=== PATIENT | female | born 1975 | race Caucasian/White ===

== ENCOUNTER → 2017-01-11 | Outpatient (CLI) | payer OTHER ==
[2017-01-11 13:00] LABS: ESTIMATED AVERAGE GLUCOSE 94 mg/dl; HA1C FLAG Normal (Normal)
[2017-01-11 13:09] LABS: CALCIUM 9.4 mg/dl (8.5-10.1)
[2017-01-11 13:12] LABS: ALT/SGPT 76 U/L (12-78); AST/SGOT 29 U/L (15-37); BLOOD UREA NITROGEN 11 mg/dl (7-18); BUN/CREATININE RATIO 14.9 (10-20); CARBON DIOXIDE 24 mmol/L (21-32); CHLORIDE 108 mmol/L (98-107); CHOLESTEROL 237 mg/dl (0-200); CREATININE 0.76 mg/dl (0.60-1.20); GLUCOSE 112 mg/dl (70-99); POTASSIUM 4.1 mmol/L (3.5-5.1); SODIUM 140 mmol/L (136-145); TRIGLYCERIDES 158 mg/dl (0-150); VERY LOW DENSITY LIPOPROT CALC 32 mg/dl
[2017-01-11 13:16] LABS: ALB/GLOB RATIO 1.4 (0.9-2); ALKALINE PHOSPHATASE 106 U/L (45-117); CHOLESTEROL/HDL RATIO 6.1; HDL CHOLESTEROL 39 mg/dl; LDL CHOLESTEROL CALCULATED 166 mg/dl
== END | disposition home or self-care (01) ==
LOC: C.LABPBG 10:33
PROVIDERS: ATTEND Physician Assistant
DX: E78.5 Hyperlipidemia, unspecified (principal); K76.0 Fatty (change of) liver, not elsewhere classified; Z13.1 Encounter for screening for diabetes mellitus

== ENCOUNTER → 2017-01-12 | Outpatient (CLI) | payer OTHER | END | disposition home or self-care (01) | LOC: C.LABPBG 12:40 | PROVIDERS: ATTEND Physician Assistant | DX: Z13.21 Encounter for screening for nutritional disorder (principal) ==

== ENCOUNTER → 2017-02-12 | Outpatient (CLI) | payer OTHER ==
--- NOTE | 2017-02-12 14:24 | MAMMOGRAPHY REPORT ---
BILATERAL DIGITAL SCREENING MAMMOGRAM TOMOSYNTHESIS WITH CAD: 02/12/2017 CLINICAL HISTORY: Routine screening. Patient has no complaints. TECHNIQUE: Breast tomosynthesis in addition to standard 2D mammography was performed. Current study was also evaluated with a Computer Aided Detection (CAD) system. COMPARISON: Comparison is made to exams dated: 12/28/2014 mammogram, 07/26/2012 mammogram, 03/03/2011 mammogram, and 05/24/2008 mammogram. BREAST COMPOSITION: The tissue of both breasts is almost entirely fatty. FINDINGS: No suspicious masses, calcifications, or areas of architectural distortion are noted in ei ther breast. There has been no significant interval change compared to prior exams. IMPRESSION: ACR BI-RADS CATEGORY 1: NEGATIVE There is no mammographic evidence of malignancy. A 1 year screening mammogram is recommended. The pa tient will receive written notification of the results. Approximately 10% of breast cancers are not detected with mammography. A negative mammographic report should not delay biopsy if a clinically suggestive mass is present. Roxanne Ayon M.D. ah/:02/12/2017 13:37:48 [employer] [employer] Director: Nidia HERNANDEZ(R)(M), [facility] letter sent: Normal 1/2 BI-RADS Code: ACR BI-RADS Category 1: Negative
== END | disposition home or self-care (01) ==
LOC: C.MAMM 13:01
PROVIDERS: ATTEND Physician Assistant
DX: Z12.31 Encounter for screening mammogram for malignant neoplasm of breast (principal)

== ENCOUNTER → 2017-05-25 | Outpatient (CLI) | payer OTHER ==
[2017-05-25 12:50] LABS: CHOLESTEROL/HDL RATIO 4.7
== END | disposition home or self-care (01) ==
LOC: C.LABPBG 09:22
PROVIDERS: ATTEND Physician Assistant
DX: E55.9 Vitamin D deficiency, unspecified (principal); E78.5 Hyperlipidemia, unspecified

== ENCOUNTER → 2018-01-07 | Outpatient (CLI) | payer OTHER | END | disposition home or self-care (01) | LOC: C.LABPBG 10:05 | PROVIDERS: ATTEND Physician Assistant | DX: E55.9 Vitamin D deficiency, unspecified (principal) ==

== ENCOUNTER 2024-02-24 06:56 | Observation (INO) ==
--- NOTE | 2024-02-21 15:17 | Anesthesiology Consultation ---
Date of Service February 21, 2024 Assessment & Plan (1) Encounter for pre-operative examination: Chart Review Chart Review: Acceptable Risk for Surgery and Patient NOT seen in Pre Admission Testing Infectious Disease screening: Per PAT nursing assessment on 02/16/24, No known infectious disease contacts in past 10 days or current infectious disease symptoms. No recent travel outside the country. History Surgery Operation Date: 02/24/24 08:20 Proposed Procedures p Open Recurrent Incisional Hernia Repair, Possible Mesh - Leonardo Lala MD, FACS Height/Weight Height: 6 ft Weight: 86.183 kg Allergies Allergy/AdvReac Type Severity Reaction Status Date / Time amlodipine [From [facility]] AdvReac Mild lower Verified 02/16/24 07:59 extremity swelling lisinopril AdvReac Mild Cough Verified 02/16/24 07:59 Medications Home Medications Medication Instructions Recorded Confirmed Last Taken fluticasone propionate 50 2 spray intranasal DAILY PRN 07/09/20 02/16/24 Unknown mcg/actuation nasal Allergy Symptoms #18.2 mL spray,suspension multivitamin 1 tab PO QAM 04/18/21 02/16/24 04/23/21 10:00 furosemide 20 mg tablet (Lasix) 20 mg PO DAILY PRN edema #20 tabs 02/22/23 02/16/24 Unknown lorazepam 0.5 mg tablet 0.5 mg PO BID PRN Anxiety #30 tabs 06/23/23 02/16/24 Unknown oxycodone 5 mg tablet 5 mg PO Q6 PRN pain #12 tabs 08/07/23 02/16/24 Unknown omeprazole 40 mg capsule,delayed 40 mg PO DAILY #90 caps 11/17/23 02/16/24 Unknown release famotidine 40 mg tablet (Pepcid) 40 mg PO BID PRN acid reflux #90 12/01/23 02/16/24 Unknown tabs metronidazole 500 mg tablet 500 mg PO .COMPLEX #3 tabs 01/19/24 01/19/24 Unknown neomycin 500 mg tablet 1 g (2 x 500 mg) PO .COMPLEX #6 01/19/24 01/19/24 Unknown tabs gabapentin 300 mg capsule 600 mg (2 x 300 mg) PO BID #100 02/09/24 02/16/24 Unknown caps trazodone 50 mg tablet 100 mg (2 x 50 mg) PO HS #180 tabs 02/14/24 02/16/24 Unknown Past Medical History Medical History (Updated 02/21/24 @ 15:18 by Kendal Barraza PA-C) Acid reflux Allergic rhinitis hx Anxiety and depression Chronic anemia Chronic venous insufficiency DDD (degenerative disc disease), lumbar Fatty liver CHAVES History of blood clots 2002-S/P HYSTERECTOMY PE-WAS TREATED WITH BLOOD THIINERS FOR A TIME-NO LONGER History of COVID-19 (2019) no hosp, resolved History of malignant neoplasm unaware History of renal calculi HX HTN (hypertension) hx of; PCP monitoring but no tx since wt loss Hyperlipemia hx of; PCP monitoring but no tx since wt loss Idiopathic polyneuropathy Migraines Sleep apnea no longer uses device since losing weight from gastric bypass sx Past Family History Family History Father , age 38 History of cardiac disorder Hypertension Coronary heart disease Myocardial infarction Brother , age 52 History of cardiac disorder Hypertension Kidney disease Sister , age 50, Sep 2023 Hypertension Diabetes Myocardial infarction Aunt Breast cancer 2 AUNTS IN THEIR 70'S Ovarian cancer 70'S Uncle Prostate cancer, Onset Age: 60 Grandfather (Paternal) Colorectal cancer Coronary heart disease Parkinson disease Grandmother (Maternal) Diabetes Parkinson disease Mother Hypertension Dementia Denies family history of Colon cancer Lung cancer Past Surgical History Surgical History (Updated 02/21/24 @ 15:32 by Kendal Barraza PA-C) Encounter for biopsy Laparoscopic Cholecystectomy with Cholangiogram, Wedge Biopsy of Right Lower Liver Lobe Dr. Lala 04/24/2021 H/O dilation and curettage 1993 History of hernia repair HERNIA AND TUMOR REMOVAL; 2002 AND 2006 History of hysterectomy 2001 History of tubal ligation 1997 Hx laparoscopic cholecystectomy (04/24/21) Laparoscopic Cholecystectomy with Cholangiogram, Wedge Biopsy of Right Lower Liver Lobe Dr. Lala 04/24/2021: GA: MAC#3,, ETT#7.0, DL x 1, atra umatic, Gr View 1 Hx of colonoscopy S/P repair of ventral hernia (07/14/19) Status post gastric bypass for obesity (2019) Social History Smoking Status: Current every day smoker tobacco type: e-cigarettes Smoking cigarettes per day: VAPES 12-15 X A DAY- advised Do You Dip or Chew Tobacco: No Hx Alcohol Use: Yes alcohol intake frequency: holidays/special occasions only Hx Substance Use: No substance use type: does not use Lab Results Anesthesia Preop Results Results Anesthesia Widget: WBC 5.07 K/ul (4.8-10.8) 01/13/24 Hgb 12.3 g/dl (12.0-16.0) 01/13/24 Hct 35.6 % (37.0-47.0) L 01/13/24 Plt 172 K/uL (130-400) 01/13/24 Na 139 mmol/L (136-145) 01/13/24 K 4.0 mmol/L (3.5-5.1) 01/13/24 Cl 104 mmol/L (98-107) 01/13/24 CO2 29 mmol/L (21-32) 01/13/24 BUN 15 mg/dl (6-23) 01/13/24 Creat 0.77 mg/dl (0.6-1.2) 01/13/24 Glucose Level 114 mg/dl (70-99(Fasting)) H 01/13/24 TSH 0.730 uIu/ml (0.300-4.500) 01/13/24 HA1c 4.7 % (4.5-5.6) 01/13/24 Urine Color Yellow 01/13/24 Urine Appearance Clear (Clear) 01/13/24 Urine pH 5.5 (4.5-7.5) 01/13/24 Urine Specific [place] 1.022 (1.000-1.030) 01/13/24 Urine Protein Negative (Negative) 01/13/24 Urine Glucose (UA) Negative (Negative) 01/13/24 Urine Ketones Trace (Negative) H 01/13/24 Urine Blood Negative (Negative) 01/13/24 Urine Nitrite Negative (Negative) 01/13/24 Urine Bilirubin Negative (Negative) 01/13/24 Urine Urobilinogen Negative (Negative) 01/13/24 Urine Leukocyte Esterase Trace (Negative) H 01/13/24 Urine WBC (Auto) 0-5 /hpf (0-5) 01/13/24 Urine RBC (Auto) 0-2 /hpf (0-2) 01/13/24 Urine Hyaline Casts (Auto) 0-2 /lpf (0-2) 01/13/24 Urine Epithelial Cells (Auto) 0-2 /hpf (0-2) 01/13/24 Urine Bacteria (Auto) None Seen (None Seen) 01/13/24 Testing Electrocardiogram Date: 02/17/24 SB with 1st degree AVB. Rate 56bpm. 01/12/2023 EKG: SB, 57bpm. Stress Test Date: 02/23/23 Type: exercise Findings: + WNL Negative exercise stress echo and EKG for ischemia at 94% MPHR. Achieved 10.10METS Resting ECHO: mild cLVH. EF 60-65%. LA borderline dilated. Borderline dilated ascending aorta. No significant valvular disease.
[2024-02-24] MEDS ORDERED: ATROPINE SULFATE 0.1 MG/ML 10ML SYR IV PRN (07:27)
[2024-02-24] MEDS ORDERED: ePHEDrine sulfate 50 MG/ML AMP IV PRN (07:27)
[2024-02-24] MEDS: LR 15ML/HR IV SCH (07:49)
--- NOTE | 2024-02-24 07:54 | History & Physical Report ---
Date of Service February 24, 2024 Assessment & Plan (1) Recurrent incisional hernia with incarceration: Plan: Current situation have been explained to the patient extensively and last visit to the office and I refer to those records for further details including the indications that we recommended an open repair versus a recurrent laparoscopic approach since she had extensive difficulties when it was done in [place] from that approach Risk and complication has similar been explained extensively Will proceed with an open repair possible mesh All question answered History of Present Illness Chief Complaint: Bulge in lower belly Primary Care Provider: Becky Jhaveri, This 48-year-old female we have seen approximately a 35 days ago for recurrent lower abdominal incisional hernia CAT scan and there is finding to be the right of the midline lower incision with possible loop of bowel She is here for hernia repair There is been no changes in overall health in the last 35 days since last seen Allergies Allergy/AdvReac Type Severity Reaction Status Date / Time amlodipine [From [facility]] AdvReac Mild lower Verified 02/24/24 07:22 extremity swelling lisinopril AdvReac Mild Cough Verified 02/24/24 07:22 Home Medications Medication Instructions Recorded Confirmed Type fluticasone propionate 50 2 spray intranasal DAILY PRN 07/09/20 02/24/24 Rx mcg/actuation nasal Allergy Symptoms #18.2 mL spray,suspension multivitamin 1 tab PO QAM 04/18/21 02/24/24 History furosemide 20 mg tablet (Lasix) 20 mg PO DAILY PRN edema #20 tabs 02/22/23 02/24/24 Rx lorazepam 0.5 mg tablet 0.5 mg PO BID PRN Anxiety #30 tabs 06/23/23 02/24/24 Rx oxycodone 5 mg tablet 5 mg PO Q6 PRN pain #12 tabs 08/07/23 02/24/24 Rx omeprazole 40 mg capsule,delayed 40 mg PO DAILY #90 caps 11/17/23 02/24/24 Rx release famotidine 40 mg tablet (Pepcid) 40 mg PO BID PRN acid reflux #90 12/01/23 02/24/24 Rx tabs metronidazole 500 mg tablet 500 mg PO .COMPLEX #3 tabs 01/19/24 02/24/24 Rx neomycin 500 mg tablet 1 g (2 x 500 mg) PO .COMPLEX #6 01/19/24 02/24/24 Rx tabs gabapentin 300 mg capsule 600 mg (2 x 300 mg) PO BID #100 02/09/24 02/24/24 Rx caps trazodone 50 mg tablet 100 mg (2 x 50 mg) PO HS #180 tabs 02/14/24 02/24/24 Rx Past Med/Surg History Problem List Recurrent incisional hernia with incarceration Cold extremities Idiopathic polyneuropathy High hepatic iron concentration determined by biopsy of liver Chronic venous insufficiency Cholecystitis Chronic constipation HX Status post gastric bypass for obesity (07/24/20) 2020 Allergic rhinitis HX Degenerative disc disease, lumbar Sensory polyneuropathy Vitamin D deficiency (Acute) Sleep apnea (Acute) NO LONGER-WT LOSS 100 LBS SINCE GASTRIC BYPASS Obesity Migraine headache (Acute) Hypertension Hyperlipidemia Fatty liver Depression HX Anxiety (Acute) HX Acid reflux (Acute) RESOLVED Medical History Acid reflux Hyperlipemia hx of; PCP monitoring but no tx since wt loss HTN (hypertension) hx of; PCP monitoring but no tx since wt loss Allergic rhinitis hx History of COVID-19 (2019) no hosp, resolved Anxiety and depression Fatty liver CHAVES Sleep apnea no longer uses device since losing weight from gastric bypass sx Chronic anemia DDD (degenerative disc disease), lumbar Chronic venous insufficiency Migraines Idiopathic polyneuropathy History of renal calculi HX History of malignant neoplasm unaware History of blood clots 2002-S/P HYSTERECTOMY PE-WAS TREATED WITH BLOOD THIINERS FOR A TIME-NO LONGER Surgical History Status post gastric bypass for obesity (2019) Encounter for biopsy Laparoscopic Cholecystectomy with Cholangiogram, Wedge Biopsy of Right Lower Liver Lobe Dr. Lala 04/24/2021 Hx laparoscopic cholecystectomy (04/24/21) Laparoscopic Cholecystectomy with Cholangiogram, Wedge Biopsy of Right Lower Liver Lobe Dr. Lala 04/24/2021: GA: MAC#3,, ETT#7.0, DL x 1, atraumatic, Gr View 1 Hx of colonoscopy H/O dilation and curettage 1993 S/P repair of ventral hernia (07/14/19) History of tubal ligation 1997 History of hysterectomy 2001 History of hernia repair HERNIA AND TUMOR REMOVAL; 2002 AND 2006 Family History Father , age 38 History of cardiac disorder Hypertension Coronary heart disease Myocardial infarction Brother , age 52 History of cardiac disorder Hypertension Kidney disease Sister , age 50, Sep 2023 Hypertension Diabetes Myocardial infarction Aunt Breast cancer 2 AUNTS IN THEIR 70'S Ovarian cancer 70'S Uncle Prostate cancer, Onset Age: 60 Grandfather (Paternal) Colorectal cancer Coronary heart disease Parkinson disease Grandmother (Maternal) Diabetes Parkinson disease Mother Hypertension Dementia Denies family history of Colon cancer Lung cancer Social History Smoking Status: Current every day smoker Tobacco Type: E-cigarettes / Vaping Age Started Using Tobacco: 14; Age Quit Using Tobacco: 37; packs per day: 1.5; Cigarettes Per Day: VAPES 12-15 X A DAY- advised; Second Hand Exposure: Yes (FAMILY SMOKES); Do You Dip or Chew Tobacco: No; Tobacco Cessation Education Requested by Patient: No Hx Alcohol Use: Yes Alcohol Intake Frequency: Monthly or Less Hx Substance Use: No Preferred Language: Hebrew Communication Ability: Effective Visual Impairment: No Limitations Hearing Ability: Normal Motor Transport Inspector Required: No Beliefs That Will Affect Care: None marital status: Current Living Situation: Spouse and Family current occupational status: unemployed current occupation: HOUSEWIFE/HOMEMAKER Other Information That Helps Us Care for You: No Feels Safe at Home: Yes Safety Concerns: Feels Safe At This Time Childhood Exposure to Second-Hand Smoke: Yes Diet Comment: hx of a bypass; soft foods caffeine: Yes (Tea x 2 per day.) during the past year weight has: decreased > 10 lbs Dental Care, Regularly: Yes Physical Activity Frequency: Daily Physical Activity Frequency Comment: walking daily Seatbelt Use: always Sunscreen Use: Yes Assistive Devices: Glasses Review of Systems Review of Systems: No change since last seen discomfort in lower belly Physical Exam Physical Exam: Alert coherent no distress Sclera nonicteric No audible rales or rhonchi Heart regular rate Abdomen completely benign lower midline incision to the right distal incision the defect appreciated by physical exam no obvious of any incarcerated tissue at this time Extremity grossly normal Results & Data Results & Data Vital Signs (Past 12 Hours) Vital Signs Temp Pulse Resp BP Pulse Ox O2 Del Method 02/24/24 07:25 36.6 C 58 L 18 126/73 100 Room Air PG Care Time/CCT Total # of Minutes Spent Total Time Spent with Patient: Total time spent is greater than 50% in coordination of care (as documented) at patient's floor/unit and/or counseling patient: Coding Level of Care Code 23721 INT INP/OBS CARE 2/55MIN Diagnoses Recurrent incisional hernia with incarceration K43.0
[2024-02-24] MEDS ORDERED: PROPOFOL IV EMULSION 10 MG/ML 20 ML VIAL IV ONE (07:56)
[2024-02-24] MEDS ORDERED: LIDOCAINE 2% 2 ML VIAL/AMP(20MG/ML) INFIL ONE (07:56)
[2024-02-24] MEDS ORDERED: ONDANSETRON INJ 2 MG/ML 2 ML VIAL ONE (07:56)
[2024-02-24] MEDS ORDERED: MIDAZOLAM HCL 1 MG/ML 2ML VIAL ONE (07:56)
[2024-02-24] MEDS ORDERED: DEXAMETHASONE SOD INJ 4 MG/ML VIAL ONE (07:56)
[2024-02-24] MEDS ORDERED: fentaNYL citrate PF 100 MCG/2 ML VIAL ONE ×2 (07:56→09:18)
[2024-02-24] MEDS ORDERED: ceFAZolin 330 MG/ML 1 GM VIAL ONE (07:59)
[2024-02-24] MEDS ORDERED: ACETAMINOPHEN 1000 MG/100 ML IV IV ONE (08:13)
[2024-02-24] MEDS ORDERED: oxyCODONE/ACETAMINOPHEN 5mg/325mg TAB PO PRN ×2 (08:18)
[2024-02-24] MEDS: ceFAZolin 2000MG 2,000 MG/15 ML SYR IV ONE (08:23)
[2024-02-24] MEDS: LIDOCAINE 1% LOCAL 20 ML VIAL ONE (08:33)
[2024-02-24] MEDS: BUPIVACAINE 0.5 % 5 MG/1 ML MPF 30ML VIAL ONE (09:31)
--- NOTE | 2024-02-24 09:35 | Post Operative Brief Note ---
Immediate Post Op Note Date of Surgery February 24, 2024 Pre & Post Diagnosis Operation Date: 02/24/24 08:20 Pre-Op Diagnosis: Recurrent Incisional Hernia with Incarceration Post-Op Diagnosis: Recurrent Incisional Hernia with Incarceration I identified the patient and participated in the time-out.: Yes Procedure Operation Date: 02/24/24 08:20 Actual Procedures p Open Recurrent Incisional Hernia Repair, Lysis of Adhesion(Not Applicable) - Leonardo Lala MD, FACS Surgeon Leonardo Lala MD, FACS Detacher Sergei Crisostomo Estimated Blood Loss 20 Findings Consistent with Post-Op Diagnosis
[2024-02-24] MEDS: fentaNYL citrate PF 100 MCG/2 ML VIAL IV PRN (09:50)
--- NOTE | 2024-02-24 09:53 | Operative Report ---
PG Post Operative Report Pre & Post Diagnosis Operation Date: 02/24/24 08:20 Pre-Op Diagnosis: Recurrent Incisional Hernia with Incarceration Post-Op Diagnosis: Recurrent Incisional Hernia with Incarceration I identified the patient and participated in the time-out.: Yes Procedure Operation Date: 02/24/24 08:20 Actual Procedures p Open Recurrent Incisional Hernia Repair, Lysis of Adhesion(Not Applicable) - Leonardo Llaa MD, FACS The patient was brought into the operating theater LMA anesthesia supine position systemic antibiotics on board timeout was had patient identified after the abdomen was prepped Betadine scrub solution and properly draped the patient had a lower midline incision where the recurrent hernia by CAT scan appeared to be to the right of the midline in the lower aspect therefore we made an incision through the old scar which was a midline incision extending approximately 10 cm deep at the subcutaneous tissue we were met with significant scar tissue in the subcutaneous area finding the most inferior aspect we were able to identify the hernial sac and followed it and the patient had a defect which was approximately 2 cm or so but gross inspection with a loop of small bowel adherent to the superior aspect and underneath we at this point placed to self retainers Lars used to expose the area we first went circumferentially around the try to find the abdominal wall before we addressed the hernial sac itself and the hernia once we had dissected out circumferentially we then were able to elevate the loop of bowel with a Funmilayo and lyse the adhesions that it was adherent to the anterior surface of the abdominal wall very adherent to what appeared to be a residual some mesh we were careful not to enter the small bowel once we have sufficiently dissected out that we were able to delineate more specifically the size of the defect we inserted a finger and identified that in the lateral aspect on more 11 o'clock position there was more weakness in the abdominal wall in that area therefore we enlarged the initial defect laterally to the point that then we were able to dissected out the where we felt she had more durable abdominal wall tissue that could be closed the hernial sac was been removed. We at this point identified using Gloria clamps and elevating the defect that we had no undersurface of any residual adherent bowel but then we closed the defect which actually came quite easily and occluded cephalad transverse aspect given to the patient LMA anesthesia I elected to closed with interrupted 0 PDS sutures [id number] spacing them at most 1 cm apart once repair appeared to be solid with good tissue and then oversewed the whole incision repair with an 0 Prolene suture starting 1 lateral and 1 medially and tied in the middle subcutaneous tissue was then checked hemostasis appear satisfactory and closed with 3-0 Vicryl continuous fashion and grey for skin edges dressing was applied the procedure was tolerated well by the patient estimated blood loss 20 cc addendum this was a very difficult dissection going through and trying to establish the planes after having had multiple abdominal surgery including a complicated laparoscopic approach done at [facility] where she had extensive postop bleeding Addendum Kathya ZAMORA was present about the case after retraction exposure wound closure Surgeon Leonardo Lala MD, FACS Museum Archivist Sergei Crisostomo Estimated Blood Loss 20 Findings Consistent with Post-Op Diagnosis Recurrent incisional hernia intra-abdominal adhesions Specimens Hernia Indications Recurrent incisional hernia with loop of bowel in the defect Description of Procedure merda I attest to the content of the Intraoperative Record and any orders documented therein. Any exceptions are noted below.
[2024-02-24] MEDS: ONDANSETRON INJ 2 MG/ML 2 ML VIAL IV PRN ×2 (10:03→13:28)
[2024-02-24] MEDS: HYDROmorphone INJ 1 MG/ML SYRINGE IV PRN (10:10)
--- NOTE | 2024-02-24 10:30 | Anesthesiology Progress Note ---
Date of Service February 24, 2024 Anesthesia Post Procedure Vital Signs Vital Signs: Temp Pulse Resp BP Pulse Ox O2 Del Method O2 Flow Rate 02/24/24 10:20 70 14 126/76 100 Nasal Cannula 2 02/24/24 10:10 78 15 128/76 93 Room Air 02/24/24 10:00 98 H 12 141/101 H 98 Room Air 02/24/24 09:50 85 16 134/87 100 Oxymask 12 02/24/24 09:43 36 C L 98 H 16 144/94 H 98 Oxymask 12 02/24/24 07:25 36.6 C 58 L 18 126/73 100 Room Air Pain Intensity Abdomen: Pain Intensity: 5 Transfer of Care Handoff Completed per policy Notes Mental Status: alert / awake / arousable Patient Amnestic to Procedure: Yes Nausea / Vomiting: adequately controlled Pain: adequately controlled Airway Patency, RR, SpO2: stable & adequate BP & HR: stable & adequate Hydration State: stable & adequate Anesthetic Complications: no major complications apparent and Pt Satisfied with anesthetic care
[2024-02-24] MEDS ORDERED: FAMOTIDINE 40 MG TABLET PO PRN (11:30)
[2024-02-24] MEDS: SODIUM CHLORIDE 0.9% 1,000 ML IV SCH (11:32)
[2024-02-24] MEDS: MoRPHine SULFATE 4 MG/ML 1 ML CARP\\VIAL IV PRN (12:07)
[2024-02-24] MEDS: LACTATED RINGER'S 1,000 ML IV SCH (12:08)
[2024-02-24] MEDS: ceFAZolin 2000MG 2,000 MG/15 ML SYR IV SCH (16:43)
[2024-02-24] MEDS: GABAPENTIN 300 MG CAP PO SCH (20:33)
[2024-02-24] MEDS: ACETAMINOPHEN 325 MG TAB PO PRN (22:20)
[2024-02-24] MEDS: oxyCODONE/ACETAMINOPHEN 5mg/325mg TAB PO PRN (23:19)
[2024-02-24] MEDS: traZODone HCL 100 MG TAB PO SCH (23:20)
[2024-02-25] MEDS: oxyCODONE/ACETAMINOPHEN 5mg/325mg TAB PO PRN (04:34)
--- NOTE | 2024-02-25 07:36 | Surgery Progress Note ---
Date of Service February 25, 2024 Assessment & Plan (1) Recurrent incisional hernia with incarceration: Plan: POD#1 open incarcerated incisional hernia repair Labs are pending. Vitals are stable Advanced to regular diet this AM Pain controlled w/ prn pain meds. incisional discomfort noted Wound with infraumbilical midline grey, small amount of bloody drainage noted on dressing Encourage ambulation and pulmonary toilet Will continue to monitor bowel movements Will evaluate later for potential discharge later today vs. tomorrow Admission and Anticipated Discharge Date Admission Date: February 24, 2024 Subjective Patient feeling okay. Reports multiple episodes of loose/incontinent stool overnight upwards of 7x. Denies nausea/vomiting. Is hungry. Is sore to abdomen, but it has been manageable on prn pain meds. + voiding and ambulating as able. Physical Exam Physical Exam: awake/alert, no distress Respiratory: normal respiratory effort Gastrointestinal (Abdomen): Inspection/Auscultation: + abdominal surgical incision (infraumbilical midline grey w/ small amount of bloody drainage noted ); abdomen not distended Percussion/Palpation: + abdomen tender (kris incisional discomfort) and abdomen soft some kris-incisional ecchymosis Results & Data Vital Signs (Past 12 Hours) Vital Signs Temp Pulse Pulse Resp BP Pulse Ox O2 Del Method 02/25/24 07:20 97.5 F L 50 L 16 103/66 100 Room Air 02/25/24 04:38 98.2 F 74 16 124/74 97 Room Air 02/25/24 01:36 99.3 F 62 16 127/84 99 Room Air 02/24/24 20:18 97 F L 57 L 16 104/59 L 99 Room Air PG Care Time/CCT Total # of Minutes Spent Total Time Spent with Patient: Total time spent is greater than 50% in coordination of care (as documented) at patient's floor/unit and/or counseling patient: Coding Level of Care Code 40400 Post Operative Follow-Up Diagnoses Recurrent incisional hernia with incarceration K43.0
[2024-02-25 07:38] LABS: Basophils # (auto) 0.02 K/uL (0.00-0.20); Basophils % (auto) 0.2 %; Eosinophils # (auto) 0.02 K/uL (0.00-0.50); Eosinophils % (auto) 0.2 %; Hematocrit (blood only) 32.9 % (37.0-47.0); Hemoglobin 11.2 g/dl (12.0-16.0); Immature Granulocytes # (auto) 0.03 K/uL (0.01-0.20); Immature Granulocytes % (auto) 0.3 %; Lymphocytes # (auto) 1.11 K/uL (1.20-3.40); Lymphocytes % (auto) 12.8 %; Mean Corpuscular Hemoglobin 30.4 pg (25.0-34.0); Mean Corpuscular Volume 89.4 fL (80.0-100.0); Mean Platelet Volume 11.5 fL (9.4-12.4); Monocytes # (auto) 0.65 K/uL (0.11-0.59); Monocytes % (auto) 7.5 %; Neutrophils # (auto) 6.86 K/uL (1.40-6.50); Platelet Count 124 K/uL (130-400); RDW Coefficient of Variation 11.9 % (11.5-14.5); RDW Standard Deviation 38.6 fL (36.4-46.3); Red Blood Count 3.68 M/uL (4.20-5.40); White Blood Count 8.69 K/ul (4.8-10.8)
[2024-02-25 07:42] LABS: BUN Creatinine Ratio 11.3 (10-20); Calcium 8.9 mg/dl (8.6-10.3); Est GFR (African American) 117.6 ml/min; Est GFR (Non-African American) 101.4 ml/min; Potassium 3.9 mmol/L (3.5-5.1)
[2024-02-25] MEDS: MoRPHine SULFATE 2 MG/ML CARP IV PRN (07:52)
[2024-02-25] MEDS ORDERED: LORazepam 0.5 MG TAB PO PRN (08:30)
[2024-02-25] MEDS: PANTOprazole 40 MG TAB PO SCH (08:43)
[2024-02-25] MEDS: LACTATED RINGER'S 1,000 ML IV SCH (12:22)
[2024-02-25] MEDS: HEPARIN SOD 5,000 UNIT/0.5 ML VIAL SQ SCH (15:15)
--- NOTE | 2024-02-26 05:33 | Surgery Progress Note ---
Date of Service February 26, 2024 Assessment & Plan (1) Recurrent incisional hernia with incarceration: Plan: Status post repair of recurrent incisional hernia and lysis of adhesions on 02/24/2024 (postop day #2) Continue analgesics as needed Continue diet as tolerated Encourage ambulation Encourage use of incentive spirometer Check a.m. labs when available Subcutaneous heparin is in place for DVT prophylaxis Potential discharge home later today pt seen. complaining of significant pain and does not feel she is ready for d/c morphine and oxycodone are helping will add ibuprofen surgical site looks good. Admission and Anticipated Discharge Date Admission Date: February 24, 2024 Subjective Patient is currently resting comfortably in bed. She notes that she is tolerating solid food without worsening abdominal pain. She also denies any nausea or vomiting. She notes that she is having loose bowel movements. She is voiding without difficulty. Patient has ambulated in the hallway. She denies any shortness of breath. No fevers, shakes, or chills. Physical Exam Gastrointestinal (Abdomen): Abdomen is soft and nondistended. Patient has appropriate pain near her surgical incision. Her surgical incision is clean, dry, and intact. Bowel sounds are present. Results & Data Vital Signs (Past 12 Hours) Vital Signs Temp Pulse Resp BP Pulse Ox O2 Del Method 02/25/24 20:06 36.4 C L 47 L 16 119/74 100 Room Air PG Care Time/CCT Total # of Minutes Spent Total Time Spent with Patient: Total time spent is greater than 50% in coordination of care (as documented) at patient's floor/unit and/or counseling patient: Coding Level of Care Code 08367 Post Operative Follow-Up Diagnoses Recurrent incisional hernia with incarceration K43.0
[2024-02-26 06:16] LABS: BUN Creatinine Ratio 10.7 (10-20); Calcium 9.1 mg/dl (8.6-10.3); Est GFR (Non-African American) 94.9 ml/min; Potassium 3.9 mmol/L (3.5-5.1)
[2024-02-26 06:17] LABS: Basophils # (auto) 0.03 K/uL (0.00-0.20); Basophils % (auto) 0.6 %; Eosinophils # (auto) 0.31 K/uL (0.00-0.50); Eosinophils % (auto) 5.8 %; Hematocrit (blood only) 33.5 % (37.0-47.0); Hemoglobin 11.2 g/dl (12.0-16.0); Immature Granulocytes # (auto) 0.01 K/uL (0.01-0.20); Immature Granulocytes % (auto) 0.2 %; Lymphocytes # (auto) 1.16 K/uL (1.20-3.40); Lymphocytes % (auto) 21.5 %; Mean Corpuscular Hemoglobin 29.8 pg (25.0-34.0); Mean Corpuscular Hgb Conc 33.4 g/dL (32.0-36.0); Mean Corpuscular Volume 89.1 fL (80.0-100.0); Mean Platelet Volume 11.5 fL (9.4-12.4); Monocytes # (auto) 0.47 K/uL (0.11-0.59); Monocytes % (auto) 8.7 %; Neutrophils # (auto) 3.41 K/uL (1.40-6.50); Neutrophils % (auto) 63.2 %; Platelet Count 116 K/uL (130-400); RDW Coefficient of Variation 12.1 % (11.5-14.5); RDW Standard Deviation 39.2 fL (36.4-46.3); Red Blood Count 3.76 M/uL (4.20-5.40); White Blood Count 5.39 K/ul (4.8-10.8)
[2024-02-26] MEDS: IBUPROFEN 200 MG/10 ML UDC PO SCH (12:52)
--- NOTE | 2024-02-27 05:32 | Surgery Progress Note ---
Date of Service February 27, 2024 Assessment & Plan (1) Recurrent incisional hernia with incarceration: Plan: Status post repair of recurrent incisional hernia and lysis of adhesions on 02/24/2024 (postop day #3) Continue analgesics when needed Continue diet as tolerated Continue ambulation/mobilization Encourage use of incentive spirometer Subcutaneous heparin is in place for DVT prophylaxis Patient not discharged to home yesterday due to inadequate pain control; DC to home later today if pain remains controlled as above. doing better. would like to go home. instructions given. follow up Dr. Lala in 1 week. Admission and Anticipated Discharge Date Admission Date: February 24, 2024 Subjective Patient is resting comfortably in bed. She notes that her pain has improved somewhat since yesterday. She continues to tolerate diet without worsening abdominal pain. She denies any nausea or vomiting. She continues to have some loose bowel movements and passing a considerable amount of flatus. She is voiding without difficulty. She continues to ambulate in the hallway denying shortness of breath. Patient is currently resting comfortably in bed. She notes that she is tolerating solid food without worsening abdominal pain. She also denies any nausea or vomiting. She notes that she is having loose bowel movements. She is voiding without difficulty. Patient has ambulated in the hallway. She denies any shortness of breath. No fevers, shakes, or chills. Physical Exam Gastrointestinal (Abdomen): Abdomen is soft and nondistended. There is no rebound tenderness or guarding and patient does have appropriate tenderness near her incision which is clean, dry, and intact. Results & Data Vital Signs (Past 12 Hours) Vital Signs Temp Pulse Resp BP Pulse Ox O2 Del Method 02/26/24 19:49 36.7 C 64 18 109/65 96 Room Air PG Care Time/CCT Total # of Minutes Spent Total Time Spent with Patient: Total time spent is greater than 50% in coordination of care (as documented) at patient's floor/unit and/or counseling patient: Coding Level of Care Code 69985 Post Operative Follow-Up Diagnoses Recurrent incisional hernia with incarceration K43.0
== END 2024-02-27 11:35 | disposition home or self-care (01) ==
LOC: ASU 06:56 → 3E 06:56